=== PATIENT | male | born 1985 | race Caucasian/White ===

== ENCOUNTER 2023-01-04 10:17 | Emergency (ER) | payer MEDICAID, OTHER ==
[~2023-01-04] VITALS: Ht 182.9 cm; Wt 134.0 kg
[2023-01-04 10:26] VITALS: BP 133/86
[2023-01-04] MEDS ORDERED: KETOROLAC TROMETH 60MG/2ML VIAL IM ONE (11:15)
[2023-01-04] MEDS ORDERED: CYCL-837 PO (11:28)
[2023-01-04] MEDS ORDERED: GABA-1308 PO (11:28)
== END 2023-01-04 11:45 | disposition home or self-care (01) ==
LOC: ER 10:17
DX: M54.50 Low back pain, unspecified (principal); Z79.899 Other long term (current) drug therapy
CPT/HCPCS: 96372; 99283; J1885